=== PATIENT | male | born 1960 | race African-American/Black ===

== ENCOUNTER 2018-06-07 12:08 | Inpatient (IN) | payer OTHER ==
[~2018-06-07] VITALS: Ht 167.6 cm; Wt 77.1 kg
[2018-06-07] MEDS ORDERED: SODIUM CHLORIDE 0.9% 250ML 250 ML IV ONE (12:15)
[2018-06-07] MEDS ORDERED: PANTOPRAZOLE 40 MG 10ML VIAL IV NR (12:30)
[2018-06-07 14:14] LABS: EOSINOPHILS # (AUTO) 0.2 (0.0-0.4); EOSINOPHILS % 5.3 % (0.0-6.0); HEMATOCRIT 25.3 % (38.2-49.6); LYMPHOCYTES % 32.2 % (18.0-39.1); MEAN CORPUSCULAR HEMOGLOBIN 30.2 pg (28-32); MEAN CORPUSCULAR HGB CONC 31.6 g/dL (31-35); MEAN CORPUSCULAR VOLUME 95.5 fL (81-99); MONOCYTES # (AUTO) 0.3 (0.2-0.8); NEUTROPHILS # (AUTO) 1.5 (2.1-6.9); NEUTROPHILS % 50.8 % (38.7-80.0); RED BLOOD COUNT 2.65 x10e6/uL (4.3-5.7); RED CELL DISTRIBUTION WIDTH 14.2 % (11.7-14.4)
[2018-06-07 14:15] LABS: PLATELET COUNT 84 x10e3/uL (140-360)
[2018-06-07 14:33] LABS: INR 1.07; PROTHROMBIN TIME 14.9 seconds (11.9-14.5)
[2018-06-07 14:34] LABS: PARTIAL THROMBOPLASTIN TIME 32.5 seconds (23.8-35.5)
[2018-06-07 14:50] LABS: ALANINE AMINOTRANSFERASE 42 IU/L (0-55); ALBUMIN 2.7 g/dL (3.5-5.0); ALBUMIN/GLOBULIN RATIO 0.5 (0.8-2.0); ALKALINE PHOSPHATASE 85 IU/L (40-150); AMYLASE 143 U/L (25-125); ANION GAP 13.7 mmol/L (8-16); BLOOD UREA NITROGEN 21 mg/dL (7-26); BUN/CREATININE RATIO 24 (6-25); CALCIUM 9.4 mg/dL (8.4-10.2); CARBON DIOXIDE 28 mmol/L (22-29); CHLORIDE 105 mmol/L (98-107); CREATININE, SERUM 0.88 mg/dL (0.72-1.25); EST GLOMERULAR FILTRATION RATE > 60 ML/MIN (60-); GLUCOSE 86 mg/dL (74-118); LIPASE 52 U/L (8-78); MAGNESIUM 1.7 MG/DL (1.3-2.1); POTASSIUM 3.7 mmol/L (3.5-5.1); SODIUM 143 mmol/L (136-145)
[2018-06-07] MEDS ORDERED: OCTREOTIDE ACETATE 600 MCG in SODIUM CHLORIDE 0.9% 250ML 300 ML IV SCH (14:50)
[2018-06-07] MEDS ORDERED: OCTREOTIDE ACETATE 0.05 MG/ML AMP IV STA (14:50)
--- NOTE | 2018-06-07 15:06 | Diagnostic Imaging Report ---
Examination: Single AP view of the chest. COMPARISON: None. INDICATION: Cough, low blood counts DISCUSSION: The lungs are well-inflated. No focal airspace consolidation, pleural effusion, or pneumothorax. Tortuosity of the thoracic aorta with atherosclerotic calcification. Otherwise normal cardiomediastinal contour when accounting for portable, AP technique. No acute osseous abnormality. IMPRESSION: No acute cardiopulmonary abnormality. Signed by: Dr. Jake Souza M.D. on 06/07/2018 3:03 PM
[2018-06-07] MEDS ORDERED: SODIUM CHLORIDE 0.9% 1000ML 1,000 ML IV ONE (15:30)
[2018-06-07] MEDS ORDERED: SODIUM CHLORIDE 0.9% 250ML 250 ML ONE ×2 (15:37→20:52)
[2018-06-07 16:07] LABS: BILIRUBIN,URINE NEGATIVE (NEGATIVE); CLARITY,URINE CLEAR (CLEAR); COLOR,URINE YELLOW (YELLOW); KETONES,URINE NEGATIVE (NEGATIVE); LEUKOCYTE ESTERASE ,URINE NEGATIVE (NEGATIVE); NITRITE,URINE NEGATIVE (NEGATIVE); PROTEIN,URINE DIPSTICK 1+ (NEGATIVE); URINE UROBILINOGEN 0.2 mg/dL (0.2 - 1)
[2018-06-07 16:21] LABS: EPITHELIAL CELLS,URINE RARE /LPF; HYALINE CASTS 0-1 (0-1); MUCUS,URINE FEW (RARE)
--- NOTE | 2018-06-07 16:42 | NUR ---
1ST UNIT OF BLOOD STARTED. V.S.S.
--- NOTE | 2018-06-07 16:55 | NUR ---
V.S.S NO REACTION NOTED
[2018-06-07] MEDS: OCTREOTIDE ACETATE 500 MCG in SODIUM CHLORIDE 0.9% 250ML 249 ML IV SCH (17:00)
[2018-06-07] MEDS: PANTOPRAZOLE 40 MG 10ML VIAL IV SCH (17:00)
--- NOTE | 2018-06-07 17:10 | NUR ---
TOLERATING BLOOD TRANSFLUSION; V.S.S.
--- NOTE | 2018-06-07 17:40 | NUR ---
BLOOD INFUSING WITH NO PROBLEM.
--- NOTE | 2018-06-07 21:40 | NUR ---
2nd unit of blood started. no reaction noted
[2018-06-07 22:45] VITALS: BP 189/91
[2018-06-07 23:00] VITALS: BP_SYST 155; BP_SYST 189; BP_DIAS 116; BP_DIAS 91
[2018-06-08] VITALS (28 sets, daily range): BP systolic 100–178; BP diastolic 48–108
[2018-06-08] MEDS ORDERED: OCTREOTIDE ACETATE 2 ML ONE (02:28)
[2018-06-08] MEDS ORDERED: SODIUM CHLORIDE 0.9% 250ML 250 ML ONE (02:28)
[2018-06-08] MEDS: OCTREOTIDE ACETATE 500 MCG in SODIUM CHLORIDE 0.9% 250ML 249 ML IV SCH ×3 (03:53→21:13)
[2018-06-08] MEDS ORDERED: SODIUM CHLORIDE 0.9% 50ML 50 ML ONE (04:16)
[2018-06-08] MEDS ORDERED: IOPAMIDOL 370 MG/ML 200 ML INFUS..BTL INJ ONE (04:16)
[2018-06-08 05:10] LABS: BASOPHILS % 0.3 % (0.0-1.0); EOSINOPHILS # (AUTO) 0.2 (0.0-0.4); EOSINOPHILS % 6.8 % (0.0-6.0); HEMATOCRIT 29.8 % (38.2-49.6); HEMOGLOBIN 9.7 g/dL (14.0-18.0); LYMPHOCYTES # (AUTO) 0.9 (1.0-3.2); MEAN CORPUSCULAR HGB CONC 32.6 g/dL (31-35); MEAN CORPUSCULAR VOLUME 92.3 fL (81-99); MONOCYTES # (AUTO) 0.3 (0.2-0.8); MONOCYTES % 9.8 % (4.4-11.3); NEUTROPHILS # (AUTO) 1.7 (2.1-6.9); NEUTROPHILS % 54.8 % (38.7-80.0); PLATELET COUNT 78 x10e3/uL (140-360); RED BLOOD COUNT 3.23 x10e6/uL (4.3-5.7); RED CELL DISTRIBUTION WIDTH 14.5 % (11.7-14.4)
[2018-06-08 06:22] LABS: FOLATE 14.6 ng/mL (7.0-15.4)
--- NOTE | 2018-06-08 06:29 | NUR ---
Called pt's [facility] ( Maricruz Samuel..[phone]) twice in an attempt to get consent for EGD. Phone was answered and hung up both times.
--- NOTE | 2018-06-08 06:34 | Diagnostic Imaging Report ---
EXAM: CT Abdomen and Pelvis WITH contrast INDICATION: ^GIB ^[id number] ^[id number] COMPARISON: None. TECHNIQUE: Abdomen and pelvis were scanned utilizing a multidetector helical scanner from the lung base to the pubic symphysis after administration of IV contrast. Coronal and sagittal reformations were obtained. Dose modulation, iterative reconstruction, and/or weight based adjustment of the mA/kV was utilized to reduce the radiation dose to as low as reasonably achievable. Routine protocol was performed. Scan was performed when during portal venous phase. IV CONTRAST: 100 mL of Isovue-370 ORAL CONTRAST: None. COMPLICATIONS: None RADIATION DOSE: Total DLP: 538.38 mGy*cm Estimated effective dose: (DLP x 0.015 x size factor) mSv CTDIvol has been reviewed. It is below the limits set by the Radiation Protocol Committee (RPC). FINDINGS: LINES and TUBES: None. LOWER THORAX: Posterior right lower lobe dependent atelectasis. HEPATOBILIARY: Nodular hepatic contour. There is hypoenhancement of the inferior right hepatic lobe with adjacent small amount of hyperdense perihepatic ascites (series 2, image 28). No focal hepatic lesions. No biliary ductal dilation. GALLBLADDER: Small calcified gallstone versus wall calcification. No wall thickening. SPLEEN: Splenomegaly measuring 16.6 cm. PANCREAS: No focal masses or ductal dilatation. ADRENALS: No adrenal nodules KIDNEYS/URETERS: Kidneys enhance symmetrically. No hydronephrosis. No cystic or solid mass lesions. Left inferior pole calculi measuring up to 1 cm GI TRACT: No abnormal distention, wall thickening, or evidence of bowel obstruction. Appendix is nonvisualized visualized. Large rectal stool burden, concerning for fecal impaction. PELVIC ORGANS/BLADDER: Unremarkable. LYMPH NODES: No lymphadenopathy. VESSELS: Mild to moderate aortoiliac atherosclerotic disease. Recanalized umbilical vein. PERITONEUM / RETROPERITONEUM: No free air or fluid. BONES: Grade 1 retrolisthesis of L5 in relation to L4. Degenerative changes of spine. SOFT TISSUES: Unremarkable. IMPRESSION: 1. Cirrhotic liver with signs of portal hypertension. 2. Inferior right hepatic lobe hypoenhancement with subtle linear hypodense lines and adjacent slightly hyperdense fluid, suspicious for hepatic injury/laceration. Recommend attention on short-term follow-up examination. 3. Left nonobstructive nephrolithiasis. 4. Tiny gallstone versus gallbladder wall calcification. 5. Large rectal stool burden, could represent fecal impaction. Signed by: Dr. Jonathan Rodrigues MD on 06/08/2018 6:31 AM
[2018-06-08 07:07] LABS: FERRITIN 185.37 ng/mL (21.81-274.66)
--- NOTE | 2018-06-08 07:16 | NUR ---
paged Dr Rena Haq regarding CT results
[2018-06-08] MEDS ORDERED: ATORVASTATIN CA20 MG PO (08:22)
[2018-06-08] MEDS ORDERED: FERROUS SULFAT324 MG PO (08:22)
[2018-06-08] MEDS ORDERED: FUROSEMIDE40 MG PO (08:22)
[2018-06-08] MEDS ORDERED: LACTULOSE20 GM/30 M PO (08:22)
[2018-06-08] MEDS ORDERED: CYCLOBENZAPRINE10 MG PO (08:22)
[2018-06-08] MEDS ORDERED: GABAPENTIN300 MG PO (08:22)
[2018-06-08] MEDS ORDERED: ASPIR 8181 MG PO (08:22)
[2018-06-08] MEDS ORDERED: PANTOPRAZOLE SO40 MG PO (08:23)
[2018-06-08] MEDS ORDERED: SERTRALINE20 MG/1 ML PO (08:23)
[2018-06-08] MEDS ORDERED: NAMENDA10 MG PO (08:23)
[2018-06-08] MEDS ORDERED: ULTRAM50 MG PO (08:23)
[2018-06-08] MEDS ORDERED: ZOFRAN4 MG PO (08:23)
[2018-06-08] MEDS ORDERED: TAMSULOSIN HCL0.4 MG PO (08:23)
--- NOTE | 2018-06-08 09:00 | NUR ---
SPOKE WITH PATIENT'S NIECE/ POA, SHE CONSENTED FOR EGD. PATIENT COMBATIVE WHEN ATTEMPT TO CLEAN HIM OR TAKE A TEMPERATURE. PATIENT REFUSES ANY ORAL CARE.
[2018-06-08] MEDS ORDERED: BISACODYL 10 MG SUPP PR ONE (09:30)
[2018-06-08] MEDS ORDERED: TRAMADOL HCL 50 MG TAB PO PRN (09:30)
[2018-06-08] MEDS ORDERED: LACTULOSE SYRUP 20 GM/30 ML UDC PO SCH (10:00)
--- NOTE | 2018-06-08 10:02 | Consultation ---
DATE OF CONSULTATION: June 08, 2018 CHIEF COMPLAINT: GI bleeding. HISTORY OF PRESENT ILLNESS: The patient is a 57-year-old male with a history of hematemesis with known history of cirrhosis of the liver. He denies abdominal pain, fever, chills, or diarrhea. The patient was found on CT scan to have a finding suggestive of hepatic laceration. PAST MEDICAL HISTORY: Positive for alcohol use with cirrhosis of the liver and hypertension. ALLERGIES: HE HAS NO DRUG ALLERGIES. SURGICAL HISTORY: Unremarkable. SOCIAL HABITS: Patient is a heavy drinker. Denies smoking. REVIEW OF SYSTEMS: No chest pain or shortness of breath. PHYSICAL EXAMINATION VITAL SIGNS: Stable. He is afebrile. GENERAL: He is awake and alert. No apparent distress. HEENT: Sclerae is nonicteric. NECK: Supple. LUNGS: Clear. HEART: Regular rate and rhythm. ABDOMEN: Soft with no guarding or tenderness in the right upper quadrant or other quadrants. EXTREMITIES: Without cyanosis or edema. White cell count is 3, hemoglobin of 9.7 and platelet count 78,000. Creatinine is 0.8 with bilirubin 0.3 and alkaline phosphatase 85. Lipase 52. INR of 1 with PT of 415. CT of the abdomen as mentioned is showing cirrhosis of the liver with portal hypertension, inferior right liver lobe subtle hypodense line suggestive of injury or laceration. ASSESSMENT: The patient with a history of hematemesis and gastrointestinal bleeding, likely from upper gastrointestinal source related to cirrhotic liver. Computerized tomography finding suggestive of hepatic injury and bleeding with no clinical supportive signs/symptoms. PLAN: Monitor abdominal exam and H and H. Will follow the patient with you closely. Job#: [id number]
[2018-06-08] MEDS: PANTOPRAZOLE 40 MG 10ML VIAL IV SCH ×2 (10:08→16:16)
[2018-06-08] MEDS: TAMSULOSIN HCL 0.4 MG CAP PO SCH (10:13)
[2018-06-08] MEDS: MEMANTINE 10 MG TAB PO SCH ×2 (10:13→18:00)
[2018-06-08] MEDS: LACTULOSE SYRUP 20 GM/30 ML UDC PO SCH ×2 (10:13→17:00)
[2018-06-08 12:21] LABS: BASOPHILS % 0.2 % (0.0-1.0); EOSINOPHILS # (AUTO) 0.3 (0.0-0.4); EOSINOPHILS % 7.1 % (0.0-6.0); HEMATOCRIT 32.1 % (38.2-49.6); HEMOGLOBIN 10.6 g/dL (14.0-18.0); LYMPHOCYTES # (AUTO) 1.1 (1.0-3.2); LYMPHOCYTES % 26.7 % (18.0-39.1); MEAN CORPUSCULAR HEMOGLOBIN 29.9 pg (28-32); MEAN CORPUSCULAR VOLUME 90.4 fL (81-99); MONOCYTES # (AUTO) 0.3 (0.2-0.8); MONOCYTES % 7.3 % (4.4-11.3); NEUTROPHILS # (AUTO) 2.5 (2.1-6.9); NEUTROPHILS % 58.2 % (38.7-80.0); PLATELET COUNT 82 x10e3/uL (140-360); RED BLOOD COUNT 3.55 x10e6/uL (4.3-5.7); RED CELL DISTRIBUTION WIDTH 14.5 % (11.7-14.4)
--- NOTE | 2018-06-08 17:39 | NUR ---
1ST BM WAS FORMED AND BROWN W COFFEE GROUND. 2ND BM WAS LOOSE AND BROWN W COFFEE GROUND
[2018-06-08 17:42] LABS: BASOPHILS % 0.2 % (0.0-1.0); EOSINOPHILS # (AUTO) 0.2 (0.0-0.4); EOSINOPHILS % 4.1 % (0.0-6.0); HEMATOCRIT 34.1 % (38.2-49.6); HEMOGLOBIN 10.7 g/dL (14.0-18.0); LYMPHOCYTES # (AUTO) 0.9 (1.0-3.2); LYMPHOCYTES % 19.3 % (18.0-39.1); MEAN CORPUSCULAR HEMOGLOBIN 29.6 pg (28-32); MEAN CORPUSCULAR HGB CONC 31.4 g/dL (31-35); MEAN CORPUSCULAR VOLUME 94.5 fL (81-99); MONOCYTES # (AUTO) 0.3 (0.2-0.8); MONOCYTES % 6.1 % (4.4-11.3); NEUTROPHILS # (AUTO) 3.1 (2.1-6.9); NEUTROPHILS % 69.8 % (38.7-80.0); RED BLOOD COUNT 3.61 x10e6/uL (4.3-5.7); RED CELL DISTRIBUTION WIDTH 14.3 % (11.7-14.4)
--- NOTE | 2018-06-08 17:42 | NUR ---
PATIENT CONSTANTLY REMOVES O2 SENSOR. SPOT CHECKS REVEAL 98-100% ON ROOM AIR
[2018-06-08 17:44] LABS: PLATELET COUNT 79 x10e3/uL (140-360)
--- NOTE | 2018-06-08 18:04 | NUR ---
SEBASTIAN EPSTEIN REGARDING PLANS FOR EGD AND NPO STATUS Addendum: 06/08/18 at 1906 by Teodora Castillo RN PLANS FOR EGD TOMORROW. MAY HAVE CLEAR LIQUIDS TONIGHT AND THEN NPO PAST MIDNIGHT.
--- NOTE | 2018-06-08 18:54 | NUR ---
MODERATE LOOSE BROWN COFFEE GROUND BM
[2018-06-09] VITALS (18 sets, daily range): BP systolic 120–158; BP diastolic 66–93
--- NOTE | 2018-06-09 00:32 | History and Physical ---
CHIEF COMPLAINT: Altered mental status, liver cirrhosis, GI bleeding, thrombocytopenia, low blood count, and hemoglobin and hematocrit of 8 and 25.3. HISTORY: The patient is a 57-year-old male, who is a resident of [facility], who was brought into the hospital due to upper GI bleed with melena. The patient has hemoglobin of 8 and hematocrit of 25.3. He is also having increase in diminished mentation. His ammonia level was 59. The patient has baseline liver cirrhosis. He is currently in the ICU. His blood pressure was low and possible with acute bleed. The patient is admitted to the ICU for further treatment. Currently, the patient is unable to give any coherent history. He is awake, however, but not following commands. PAST MEDICAL HISTORY: CVA, essential hypertension, dyslipidemia, reflux, liver cirrhosis, nonspecific hemiplegia, vascular dementia with behavioral disturbances, anxiety disorder, restlessness and agitation, progressive medical decline, ambulatory dysfunction, and dysphagia. PAST SURGICAL HISTORY: Not available. SOCIAL HISTORY: The patient is a resident of [facility]. ALLERGIES: NO KNOWN ALLERGIES. MEDICATIONS: long-term medication list will be reviewed. REVIEW OF SYSTEMS: Unable to obtain. PHYSICAL EXAMINATION: VITAL SIGNS: Temperature is 98, blood pressure is 135/67, pulse rate is 58, and respirations are 22. GENERAL: The patient is not in any acute distress in ICU. HEENT: Normocephalic and atraumatic. Anicteric. NECK: Supple grossly. PULMONARY: Diminished breath sounds bilaterally. CARDIOVASCULAR: Bradycardia. ABDOMEN: Distended. No guarding. No rebound tenderness. EXTREMITIES: No gross cyanosis. Positive for edema. NEUROLOGIC: Difficult to assess. The patient is not following much commands. He is awake. He is confused however. DIAGNOSTIC DATA: CT scan of the abdomen and pelvis shows cirrhotic liver with sign of portal hypertension. There is inferior right hepatic lobe hypoenhancement suspicious for hepatic injury. Nonobstructive left nephrolithiasis. Tiny gallstones. Large rectal stool burden. LABORATORY DATA: Sodium is 143, potassium is 3.7, chloride is 105, bicarb is 28, BUN is 21, creatinine is 0.8, and glucose is 86. Liver enzymes; AST is 48, ALT is 42, and alkaline phosphatase is 85. Albumin is 2.7. WBC is 3.0, hemoglobin is 8, hematocrit is 25.3, and platelets are 84,000. Occult blood is positive. Urinalysis; 1+ protein. Negative leukocyte esterase. IMPRESSION: 1. Acute blood loss anemia. The [facility], shows hemoglobin of 6.9 and hematocrit 20.1. Here, the patient is status post 2 units of blood transfusion. The patient is stable. 2. Liver cirrhosis, baseline. 3. Multiple chronic baseline problems, including vascular dementia and previous cerebrovascular accident, hemiparesis, jail ADL care per [facility] note, ambulatory dysfunction. PLAN: The patient will need endoscopy. We will monitor the patient's labs. We will repeat his blood work in the morning. Blood transfusion is already done. Consultation to Gastroenterology and General Surgery, Dr. Zeb Haq and Dr. Jake Estrada. We will repeat the patient's lab work and monitor the patient closely in the ICU. MD IDALIA Wilkins/LEWIS /[id number]
[2018-06-09] MEDS: MEMANTINE 10 MG TAB PO SCH ×2 (09:00→16:03)
[2018-06-09] MEDS: LACTULOSE SYRUP 20 GM/30 ML UDC PO SCH ×2 (09:00→16:03)
[2018-06-09] MEDS: PANTOPRAZOLE 40 MG 10ML VIAL IV SCH ×2 (09:00→14:50)
[2018-06-09] MEDS: TAMSULOSIN HCL 0.4 MG CAP PO SCH (09:00)
[2018-06-09] MEDS: OCTREOTIDE ACETATE 500 MCG in SODIUM CHLORIDE 0.9% 250ML 249 ML IV SCH ×2 (10:25→21:00)
[2018-06-09] MEDS ORDERED: LIDOCAINE HCL 2% LOCAL INJ 5 ML SDV VIAL INJ ONE (16:55)
[2018-06-09] MEDS ORDERED: PROPOFOL IV EMULSION 10 MG/ML 50 ML VIAL ONE (16:55)
[2018-06-09] MEDS ORDERED: KETAMINE HCL INJ 50 MG/ML 10 ML VIAL ONE (17:36)
--- NOTE | 2018-06-09 18:51 | NUR ---
PT BEING TAKEN FOR EGD PROCEDURE AT THIS TIME,
--- NOTE | 2018-06-09 20:55 | NUR ---
PATIENT RECEIVED FROM RECOVERY PER BED AT 2020. ALERT, ORIENTED TO SELF AND PLACE, NO RESPIRATORY DISTRESS OBSERVED AND HE DENIES PAIN. PATIENT INCONTINENT OF URINE, HE'S KEPT CLEAN AND DRY, REPOSITION ON HIS LEFT SIDE. BLISTERS NOTED TO THE RIGHT THIGH, HEAD OF BED ELEVATED, CALL LIGHT WITHIN EASY REACH.
--- NOTE | 2018-06-09 23:07 | NUR ---
PATIENT KEPT CLEAN AND DRY, REPOSITION TO THE RIGHT SIDE. JELLO AND APPLE JUICE GIVEN TO THE PATIENT. BED ALARM ON, CALL LIGHT WITHIN EASY REACH.
[2018-06-10 00:25] VITALS: BP 188/84
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
--- NOTE | 2018-06-10 01:58 | Operative Report ---
DATE OF PROCEDURE: 06/09/2018 PROCEDURE: EGD with fulguration of watermelon stomach with APC probe. REFERRING PHYSICIAN: Alo Beach MD. INDICATION FOR EGD: Anemia, melena, and guaiac positive stools. MEDICATIONS: The patient was done under MAC. Please see anesthesiologist's note. DESCRIPTION OF PROCEDURE: With the patient in left lateral decubitus position, a flexible fiberoptic Olympus gastroscope was introduced into the esophagus under direct visualization without any difficulty. Grade 1 to 2 esophageal varices were noted without active bleeding or stigmata of recent hemorrhage. The scope was then advanced with ease into the stomach. Mucosa overlying the body revealed changes compatible with portal hypertensive gastropathy. There was an obvious watermelon stomach noted in the antrum. The pylorus was somewhat stenotic, but was traversed with gentle persistent pressure and opened up nicely later and the scope was advanced through the second portion of the duodenum. Mucosa overlying the proximal second portion and the duodenal bulb was not optimally visualized as the patient was restless during the procedure. The scope was then withdrawn back into the stomach. The scope was then retroflexed. The mucosa overlying the fundus and cardia grossly appeared to be within normal limits. The scope was then straightened out and the watermelon stomach was fulgurated with the APC probe. Excellent hemostasis was obtained. The scope was subsequently withdrawn. The patient tolerated the procedure well. IMPRESSION: 1. Esophageal varices grade 1 to 2 without active bleeding or stigmata of recent hemorrhage. 2. Portal hypertensive gastropathy. 3. Watermelon stomach fulgurated with APC probe. PLAN: Follow H and H. Initiate full liquid diet. Zeb Haq MD [facility] [place] /[id number] cc: Alo Beach MD
--- NOTE | 2018-06-10 04:41 | NUR ---
SEVERAL ATTEMPTS MADE TO CHECK THE PATIENT TO SEE IF HE NEEDS TO BE DRY, HE BECAME AGITATED AND REFUSED TO BE TOUCH AND ALSO REPOSITION. THIS PATIENT HAS HISTORY OF DEMENTIA, WILL WAIT UNTIL HE'S CALM TO ASSESS HIS VITAL SIGNS AND CHANGE HIM BECAUSE HE'S USUALLY INCONTINENT.
[2018-06-10 07:00] VITALS: BP 161/74
[2018-06-10] MEDS: OCTREOTIDE ACETATE 500 MCG in SODIUM CHLORIDE 0.9% 250ML 249 ML IV SCH ×3 (07:08→23:00)
[2018-06-10] MEDS ORDERED: CYCLOBENZAPRINE HCL 10 MG TAB PO PRN (09:00)
[2018-06-10] MEDS: MEMANTINE 10 MG TAB PO SCH ×2 (09:10→16:19)
[2018-06-10] MEDS: LACTULOSE SYRUP 20 GM/30 ML UDC PO SCH ×2 (09:10→16:19)
[2018-06-10] MEDS: TAMSULOSIN HCL 0.4 MG CAP PO SCH (09:10)
[2018-06-10] MEDS: PANTOPRAZOLE 40 MG 10ML VIAL IV SCH ×2 (09:10→16:19)
[2018-06-10] MEDS: GABAPENTIN 300 MG CAP PO SCH ×3 (09:34→21:23)
[2018-06-10] MEDS: FERROUS SULFATE 325 MG TAB PO SCH ×2 (09:34→16:19)
[2018-06-10] MEDS: FUROSEMIDE 40 MG TAB PO SCH (09:34)
[2018-06-10 11:00] VITALS: BP 169/80
[2018-06-10 15:00] VITALS: BP 146/79
--- NOTE | 2018-06-10 15:14 | NUR ---
Attempted to visit pt today but pt was sleeping. RD will revisit tomorrow.
[2018-06-10 20:00] VITALS: BP 171/92
--- NOTE | 2018-06-10 21:24 | NUR ---
PATIENT PULL OUT HIS IV, NO BLEEDING NOTED FROM THE SITE. WILL ATTEMPT TO RESTART HIS IV.
--- NOTE | 2018-06-10 22:18 | NUR ---
PATIENT INCONTINENT OF URINE, HE'S KEPT CLEAN AND DRY, REPOSITION FOR COMFORT. ATTEMPTED TO RESTART THE PATIENT'S IV SINCE HE GOT AN ORDER FOR SANDOSTATIN DRIP, HE'S VERY COMBATIVE, USING OFFENSIVE WORDS AND DOES NOT WANT THE IV STARTED. WILL NOTIFY THE PRESCRIBING PHYSICIAN. BED ALARM ON, CALL LIGHT WITHIN EASY REACH.
--- NOTE | 2018-06-11 00:39 | NUR ---
DR Marianela EPSTEIN SAW THE PATIENT, HE WAS MADE AWARE THAT THE PATIENT REFUSED TO RESTART HIS IV AND HE WAS USING ABUSIVE WORDS TOWARDS THE STAFF.
[2018-06-11 04:00] VITALS: BP_SYST 126; BP_SYST 144; BP_DIAS 55; BP_DIAS 87
--- NOTE | 2018-06-11 04:52 | NUR ---
PATIENT INCONTINENT OF URINE, HE'S KEPT CLEAN AND DRY. HE DENIES PAIN, BED ALARM ON AND CALL LIGHT WITHIN EASY REACH.
[2018-06-11 05:01] LABS: BASOPHILS % 0.3 % (0.0-1.0); EOSINOPHILS # (AUTO) 0.2 (0.0-0.4); EOSINOPHILS % 4.9 % (0.0-6.0); HEMATOCRIT 28.7 % (38.2-49.6); HEMOGLOBIN 9.5 g/dL (14.0-18.0); LYMPHOCYTES % 32.6 % (18.0-39.1); MEAN CORPUSCULAR HEMOGLOBIN 30.4 pg (28-32); MEAN CORPUSCULAR HGB CONC 33.1 g/dL (31-35); MEAN CORPUSCULAR VOLUME 91.7 fL (81-99); MONOCYTES # (AUTO) 0.3 (0.2-0.8); MONOCYTES % 8.6 % (4.4-11.3); NEUTROPHILS # (AUTO) 1.6 (2.1-6.9); NEUTROPHILS % 53.3 % (38.7-80.0); PLATELET COUNT 61 x10e3/uL (140-360); RED BLOOD COUNT 3.13 x10e6/uL (4.3-5.7); RED CELL DISTRIBUTION WIDTH 13.9 % (11.7-14.4)
[2018-06-11 05:22] LABS: ANION GAP 8.9 mmol/L (8-16); BLOOD UREA NITROGEN 22 mg/dL (7-26); BUN/CREATININE RATIO 28 (6-25); CALCIUM 8.3 mg/dL (8.4-10.2); CARBON DIOXIDE 26 mmol/L (22-29); CHLORIDE 107 mmol/L (98-107); EST GLOMERULAR FILTRATION RATE > 60 ML/MIN (60-); GLUCOSE 83 mg/dL (74-118); POTASSIUM 3.9 mmol/L (3.5-5.1); SODIUM 138 mmol/L (136-145)
[2018-06-11 05:51] LABS: MAGNESIUM 1.6 MG/DL (1.3-2.1); PHOSPHORUS 2.6 MG/DL (2.3-4.7)
[2018-06-11 07:30] VITALS: BP 130/80
[2018-06-11 08:00] VITALS: BP 144/87
[2018-06-11] MEDS: PANTOPRAZOLE 40 MG 10ML VIAL IV SCH (09:00)
[2018-06-11] MEDS: FUROSEMIDE 40 MG TAB PO SCH (09:23)
[2018-06-11] MEDS: FERROUS SULFATE 325 MG TAB PO SCH ×2 (09:23→16:30)
[2018-06-11] MEDS: LACTULOSE SYRUP 20 GM/30 ML UDC PO SCH ×2 (09:23→16:30)
[2018-06-11] MEDS: TAMSULOSIN HCL 0.4 MG CAP PO SCH (09:23)
[2018-06-11] MEDS: MEMANTINE 10 MG TAB PO SCH ×2 (09:23→16:30)
[2018-06-11] MEDS: GABAPENTIN 300 MG CAP PO SCH ×2 (09:24→15:24)
--- NOTE | 2018-06-11 09:31 | NUR ---
informed dr valentin, patient has no IV access, orders to change IV medications to PO received
[2018-06-11 12:00] VITALS: BP 156/84
--- NOTE | 2018-06-11 14:03 | NUR ---
patient incontinent of urine, diaper changed and repositioned in bed, bed alarm on
--- NOTE | 2018-06-11 15:23 | NUR ---
informed Maricruz Samuel @ [phone], patient is being discharged and will transfer back to [facility] today, verbalized understanding
[2018-06-11 16:45] VITALS: BP 133/70
[2018-06-11] MEDS ORDERED: PANTOPRAZOLE SOD 40 MG TABEC PO SCH (17:00)
--- NOTE | 2018-06-11 17:38 | NUR ---
patient discharged to [facility] via stretcher transported by EMS, all discharge instructions given
--- NOTE | 2018-06-12 15:39 | Discharge Summary ---
SERVICE SPRINKLER HELPER: Zeb Haq MD FINAL DIAGNOSES: 1. Acute upper gastrointestinal bleed anemia. 2. Status post multiple packed red blood cell transfusion. 3. Status post esophagogastroduodenoscopy with fulguration of watermelon stomach with APC probe. The patient has esophageal varices grade 1-2 without active bleed or stigmata of recent hemorrhage. Portal hypertension, gastropathy, watermelon stomach, status post fulgurated with APC probe with treatment. BASELINE: The patient has previous CVA, vascular dementia and left hemiparesis, bedbound, on full ADL care. SUMMARY: The patient is a 57-year-old male, [facility] resident, left hemiparesis, bedbound, and required mostly full ADL care. The patient also has vascular dementia, came in with very low hemoglobin and hematocrit. On admission, the patient's hemoglobin was 8.0 and hematocrit was 25.3. The patient is status post 2 units of blood transfusion. He underwent EGD and treatment as mentioned above. The patient is stable. He is doing much better. No gross bleed. Vital signs are stable. The patient will be [facility] to the [facility]. Recommendation to stop the Lipitor due to the patient's liver cirrhosis and also the aspirin 81 mg daily due to the watermelon stomach. The patient will continue his other home medications. The patient is stable. Recommended for obtaining CBC every 3 days x3 sets. The patient is stable, discharged back to the [facility] today. MD IDALIA Wilkins/MODL /[id number]
== END 2018-06-11 17:15 | disposition other institution (70) | DRG 378 ==
LOC: ER 12:08 → ERHOLD 16:37 → ICU 22:50 → IMCU 06-09 14:47
PROVIDERS: ADMIT Internal Medicine; ATTEND Internal Medicine
PROC: 0D568ZZ Destruction of Stomach, Via Natural or Artificial Opening Endoscopic (ICD-10-PCS; principal; 2018-06-07)
PROC: 30233N1 Transfusion of Nonautologous Red Blood Cells into Peripheral Vein, Percutaneous Approach (ICD-10-PCS; 2018-06-07)
DX: K31.811 Angiodysplasia of stomach and duodenum with bleeding (principal); K76.6 Portal hypertension; I69.351 Hemiplegia and hemiparesis following cerebral infarction affecting right dominant side; D62 Acute posthemorrhagic anemia; K31.89 Other diseases of stomach and duodenum; K74.60 Unspecified cirrhosis of liver; I10 Essential (primary) hypertension; E11.9 Type 2 diabetes mellitus without complications; I85.10 Secondary esophageal varices without bleeding; F01.50 Vascular dementia, unspecified severity, without behavioral disturbance, psychotic disturbance, mood disturbance, and anxiety
CPT/HCPCS: 36415; 43270; 71045; 74177; 80048; 80053; 81001; 82105; 82140; 82150; 82270; 82607; 82728; 82746; 82948; 83540; 83690; 83735; 84100; 84466; 85025; 85045; 85610; 85730; 86850; 86900; 86920; 87522; 93005; 99284; J2001; J2353; J7030; J7050; P9016; Q9967

== ENCOUNTER 2018-12-27 13:17 | Inpatient (IN) | payer OTHER ==
[~2018-12-27] VITALS: Ht 167.6 cm; Wt 76.3 kg
[~2018-12-27 13:17] MED LIST: ASPIR 8181 MG PO; ATORVASTATIN CA20 MG PO; CYCLOBENZAPRINE10 MG PO; FERROUS SULFAT324 MG PO; FUROSEMIDE40 MG PO; GABAPENTIN300 MG PO; LACTULOSE20 GM/30 M PO; NAMENDA10 MG PO; PANTOPRAZOLE SO40 MG PO; SERTRALINE20 MG/1 ML PO; TAMSULOSIN HCL0.4 MG PO; ULTRAM50 MG PO; ZOFRAN4 MG PO
--- NOTE | 2018-12-27 13:46 | NUR ---
DR. PIKE AT BEDSIDE FOR PT EVAL, PERFORMING RAMANDEEP FOR OCCULT STOOL.
[2018-12-27] MEDS ORDERED: PANTOPRAZOLE 40 MG 10ML VIAL IV ONE (13:49)
[2018-12-27] MEDS ORDERED: SODIUM CHLORIDE 0.9% 1000ML 1,000 ML IV STA (13:49)
[2018-12-27] MEDS ORDERED: SODIUM CHLORIDE 0.9% 1000ML 500 ML IV STA (13:49)
[2018-12-27] MEDS ORDERED: ONDANSETRON HCL INJ 2MG/ML 2ML 2 MG/ML VIAL IV PRN (14:00)
[2018-12-27 14:07] LABS: BASOPHILS % 0.3 % (0.0-1.0); EOSINOPHILS # (AUTO) 0.1 (0.0-0.4); EOSINOPHILS % 3.9 % (0.0-6.0); HEMATOCRIT 24.4 % (38.2-49.6); HEMOGLOBIN 7.4 g/dL (14.0-18.0); LYMPHOCYTES # (AUTO) 0.8 (1.0-3.2); LYMPHOCYTES % 22.6 % (18.0-39.1); MEAN CORPUSCULAR HEMOGLOBIN 29.6 pg (28-32); MEAN CORPUSCULAR HGB CONC 30.3 g/dL (31-35); MEAN CORPUSCULAR VOLUME 97.6 fL (81-99); MONOCYTES # (AUTO) 0.2 (0.2-0.8); MONOCYTES % 6.9 % (4.4-11.3); NEUTROPHILS # (AUTO) 2.2 (2.1-6.9); NEUTROPHILS % 65.7 % (38.7-80.0); PLATELET COUNT 73 x10e3/uL (140-360); RED CELL DISTRIBUTION WIDTH 14.8 % (11.7-14.4)
[2018-12-27 14:18] LABS: INR 1.13
[2018-12-27 14:19] LABS: PARTIAL THROMBOPLASTIN TIME 30.9 seconds (23.8-35.5)
[2018-12-27 14:29] LABS: ALANINE AMINOTRANSFERASE 42 IU/L (0-55); ALBUMIN 2.6 g/dL (3.5-5.0); ALBUMIN/GLOBULIN RATIO 0.5 (0.8-2.0); ALKALINE PHOSPHATASE 80 IU/L (40-150); BLOOD UREA NITROGEN 23 mg/dL (7-26); BUN/CREATININE RATIO 24 (6-25); CALCIUM 9.4 mg/dL (8.4-10.2); CARBON DIOXIDE 26 mmol/L (22-29); CHLORIDE 109 mmol/L (98-107); CREATINE KINASE 145 IU/L (30-200); CREATININE, SERUM 0.97 mg/dL (0.72-1.25); EST GLOMERULAR FILTRATION RATE > 60 ML/MIN (60-); GLUCOSE 100 mg/dL (74-118); SODIUM 145 mmol/L (136-145)
[2018-12-27 14:45] LABS: LIPASE 47 U/L (8-78)
[2018-12-27 15:05] LABS: THYROID STIMULATING HORMONE 0.933 uIU/mL (0.350-4.940)
--- NOTE | 2018-12-27 15:40 | Diagnostic Imaging Report ---
EXAMINATION: CHEST SINGLE (PORTABLE) INDICATION: Anemia COMPARISON: Chest graft with 06/07/2018 FINDINGS: LINES/TUBES:EKG leads overlie the chest. LUNGS:The lungs are well-inflated. No focal consolidation or pulmonary edema. PLEURA:No pleural effusion or pneumothorax. MEDIASTINUM:The cardiomediastinal silhouette appears normal in size and shape. Atherosclerotic calcifications of the thoracic aorta. BONES/SOFT TISSUES:No acute osseous injury. ABDOMEN:No free air under the diaphragm. IMPRESSION: No focal pneumonia or pulmonary edema. Signed by: Mere Eng MD on 12/27/2018 3:36 PM
--- NOTE | 2018-12-27 16:26 | NUR ---
AT BEDSIDE FOR STRAIGHT CATH, PT BECOMING AGGRESSIVE, STATING "BITCH ASS WOLF, FUCK YOU" TO STAFF, INFORMED ON INTENT TO OBTAIN CATH UA PER PLAN OF CARE AND MD ORDERS; PROCEDURE COMPLETE USING ASEPTIC TECHNIQUE, CATH UA SENT TO LAB, WILL CONTINUE TO MONITOR.
[2018-12-27 16:53] LABS: BILIRUBIN,URINE NEGATIVE (NEGATIVE); CLARITY,URINE CLEAR (CLEAR); COLOR,URINE YELLOW (YELLOW); KETONES,URINE NEGATIVE (NEGATIVE); LEUKOCYTE ESTERASE ,URINE NEGATIVE (NEGATIVE); NITRITE,URINE NEGATIVE (NEGATIVE); PROTEIN,URINE DIPSTICK 1+ (NEGATIVE); URINE UROBILINOGEN 1 mg/dL (0.2 - 1)
[2018-12-27 17:06] LABS: BACTERIA,URINE FEW /HPF; HYALINE CASTS 0-1 (0-1)
[2018-12-27] MEDS ORDERED: ACETAMINOPHEN 325 MG TAB PO STA (17:59)
[2018-12-27] MEDS ORDERED: SODIUM CHLORIDE 0.9% 250ML 250 ML IV ONE (18:00)
[2018-12-27] MEDS ORDERED: FUROSEMIDE INJ 10 MG/ML 2 ML VIAL IV PRN (18:00)
[2018-12-27] MEDS ORDERED: DIPHENHYDRAMINE HCL INJ 50 MG/ML VIAL IV ONE (18:30)
[2018-12-27 19:37] LABS: % IRON SATURATION 23 % (15-50); IRON 60 ug/dL (65-175); TOTAL IRON BINDING CAPACITY 258 ug/dL (261-478); TRANSFERRIN 184 mg/dL (174-364)
[2018-12-27] MEDS: SODIUM CHLORIDE 0.9% 1000ML 1,000 ML IV SCH (21:53)
[2018-12-28] VITALS (9 sets, daily range): BP systolic 115–159; BP diastolic 60–90
--- NOTE | 2018-12-28 00:30 | NUR ---
Pt admitted to room 296 awake, alert, and oriented to person. Dx: GIB, anemia. Orders to give 2 units PRBCs, hgb 7.4. On monitoring specialist with NSR., #6. Lung sounds CTA. Oxygen Saturation on room air 100%. Abdomen soft, non-tender, distended, + 4 bowel sounds. Wears diaper. 20g IV right AC, flushed 10ml NS. Hx CVA, PROM x4 extremities. Lives at [facility]. Oriented to call hayes. Bed low and locked. Call hayes within reach. Bed alarm on. Will continue to monitor.
[2018-12-28] MEDS ORDERED: DIPHENHYDRAMINE HCL INJ 50 MG/ML VIAL ONE (01:15)
[2018-12-28] MEDS ORDERED: ACETAMINOPHEN 325 MG TAB ONE (01:16)
[2018-12-28] MEDS ORDERED: SODIUM CHLORIDE 0.9% 250ML 250 ML ONE ×2 (01:16→04:25)
--- NOTE | 2018-12-28 01:41 | History and Physical ---
A 58-year-old male, who comes in with GI bleed with history of anemia. HISTORY OF PRESENTING ILLNESS: The patient is slow to answer, slow response. The patient, however, presented to the emergency room from the [facility] to the emergency room for low hemoglobin of 6.5 for the last 2 days. The patient is aphasic from the history of stroke, information as from the chart. PAST MEDICAL HISTORY: History of CVA, history of hypertension, history of diabetes, history of liver disease, history of hyperlipidemia. The patient's history includes hyperlipidemia and gastroesophageal reflux and also hepatic failure with unspecified cirrhosis of the liver. The patient also has history of falling, history of anxiety, history of pain, history of age-related physical disability, and also history of dysphagia, has cognitive communication deficits too. MEDICATIONS: Include: 1. Cyclobenzaprine 10 mg. 2. Ferrous sulfate 325 mg. 3. Furosemide 60 mg twice a day. 4. Gabapentin 300 mg 3 times a day. 5. Lactulose 45 mg. 6. Memantine 10 mg. 7. Pantoprazole 40 mg daily. 8. Sertraline 20 mg daily. 9. Tamsulosin 0.4 mg q.24 hours. 10. Tramadol 50 mg q.6 hours p.r.n. PAST SURGICAL HISTORY: Unable to get at this time, but from chart, the patient does not have any surgical history. SOCIAL HISTORY: Lives in a half-way setting and also hemoglobin trends from 7.6 to 7.3 on 12/12. On 12/26, the patient is 6.5 and yesterday 12/19, the patient was 6.6. ALLERGIES: NO DRUG ALLERGIES LISTED. SOCIAL HISTORY: As mentioned above. REVIEW OF SYSTEMS: Unable to get complete history, secondary to the patient being aphasic and also not responsive to questions. PHYSICAL EXAMINATION: VITAL SIGNS: Temperature is 98.2, pulse 91, respirations is 16, blood pressure is 150/83, pulse oximetry of 100%. HEENT: Normocephalic, atraumatic. Pupils are reactive. The patient is slow response again. CVS: S1 and S2 normal. Regular rate and rhythm. ABDOMEN: Tender in the epigastrium. EXTREMITIES: No clubbing. Positive for trace edema. Positive for tenderness in the lower extremity. RECTUM: Positive for heme-positive stools as per ER. SKIN: Warm. NEUROLOGIC: Alert and oriented x1. The patient is slow response. Motor deficit and sensory deficit not noted, however, not completely examined. LABORATORY VALUES: Initial white count is 3.32, hemoglobin of 7.4, hematocrit of 24.4, and platelet count of 73. MCV is 97.6, MCHC of 29.6. Chemistry shows sodium of 140, potassium of 4.0. BUN of 23, creatinine 0.97, total bilirubin 0.93. ALT and AST are 42 and 46, CK-MB 7.7, TSH 0.93. Coags were normal. IMAGING STUDIES: Chest x-ray was done, shows no focal pneumonia or pulmonary edema. ASSESSMENT: 1. A 58-year-old male with a history of cirrhosis of the liver. 2. History of portal hypertension. 3. History of diabetes mellitus. 4. History of gastrointestinal bleed and anemia of chronic disease, all possibly secondary to upper gastrointestinal bleed. 5. History of dementia. 6. History of encephalopathy. 7. History of hypertension. 8. History of hyperlipidemia. PLAN: We will consult with Dr. Carrington. That has been done, the patient will be kept in IMCU with telemonitoring. Check CBCs. Iron panel will be ordered. The patient also will have his home medications replaced. Further recommendation per clinical course. Also, urine cultures pending. We will continue to monitor the patient along with Dr. Zeb Haq and if hemoglobin is stabilized, then we will not transfuse, but if it keeps dropping, we will go ahead and transfuse 2 units of PRBC. We will type and cross 2 units and keep it aside. MD LUIS Peters/MODL /[id number]
--- NOTE | 2018-12-28 08:33 | Progress Note ---
DATE: SUBJECTIVE: This is a 58-year-old male, comes in with acute GI bleed yesterday. The patient is receiving 2 units of PRBCs, 1st unit is ongoing. A consult with Dr. Zeb Haq has been done. The patient is currently asymptomatic and is currently sleeping. The patient has a history of CVA in the face, he cannot respond to verbal stimulus. The patient is very lethargic. MEDICATIONS: Include ferrous sulfate, furosemide, gabapentin, lactulose as needed for encephalopathy, memantine for dementia, Zofran as needed, pantoprazole and tamsulosin. OBJECTIVE: HEENT: Normocephalic and atraumatic. The patient is very thin and not obtunded. CVS: S1 and S2 normal. Regular rate and rhythm. ABDOMEN: It is tender in the epigastrium. EXTREMITIES: No clubbing, no cyanosis, no edema. The patient again has severe protein energy malnutrition. LABORATORY VALUES: From today none done. Hemoglobin is 7.4. Chemistries; sodium 145, BUN of 23, creatinine 0.97, preserved creatinine function. Iron is 60, TIBC of 258. Percent saturation of 23 and transferrin of 153. Troponin was negative. TSH is 0.093. Lipase is 47. Coags, INR are 1.13. ASSESSMENT: 58-year-old man with history of cirrhosis of liver, history of cerebrovascular accident, history of portal hypertension, and history of diabetes mellitus, comes with gastrointestinal bleed, anemia of chronic disease. The patient is being transfused 2 units of PRBCs. PLAN: Plan would be to possibly do an upper endoscopy to rule out gastrointestinal bleed. Continue with medications for cirrhosis, encephalopathy, hypertension, and hyperlipidemia. Further recommendation per clinical course. The patient has overall very guarded prognosis in lieu of his multiple medical conditions including CVA, cirrhosis of liver, hypertension, and diabetes mellitus. For further information, look into the chart. The patient will continue to be monitor for CBC and CMP on a daily basis. We will continue to monitor the patient along with Dr. Zeb Haq, and check his H and Hs on regular basis. MD LUIS Peters/LEWIS /[id number]
[2018-12-28] MEDS ORDERED: PANTOPRAZOLE 40 MG 10ML VIAL IV SCH (09:00)
[2018-12-28] MEDS ORDERED: PANTOPRAZOLE SOD 40 MG TABEC PO SCH (09:00)
[2018-12-28] MEDS: SERTRALINE PO SCH (09:00)
[2018-12-28 09:56] LABS: BASOPHILS % 0.3 % (0.0-1.0); EOSINOPHILS # (AUTO) 0.2 (0.0-0.4); EOSINOPHILS % 4.5 % (0.0-6.0); HEMOGLOBIN 9.7 g/dL (14.0-18.0); LYMPHOCYTES # (AUTO) 1.1 (1.0-3.2); LYMPHOCYTES % 31.3 % (18.0-39.1); MEAN CORPUSCULAR HEMOGLOBIN 30.1 pg (28-32); MEAN CORPUSCULAR HGB CONC 32.3 g/dL (31-35); MEAN CORPUSCULAR VOLUME 93.2 fL (81-99); MONOCYTES # (AUTO) 0.3 (0.2-0.8); MONOCYTES % 9.4 % (4.4-11.3); NEUTROPHILS # (AUTO) 1.9 (2.1-6.9); NEUTROPHILS % 53.9 % (38.7-80.0); PLATELET COUNT 72 x10e3/uL (140-360); RED BLOOD COUNT 3.22 x10e6/uL (4.3-5.7); RED CELL DISTRIBUTION WIDTH 14.6 % (11.7-14.4)
[2018-12-28] MEDS: TAMSULOSIN HCL 0.4 MG CAP PO SCH (10:16)
[2018-12-28] MEDS: FERROUS SULFATE 325 MG TAB PO SCH (10:16)
[2018-12-28] MEDS: LACTULOSE SYRUP 20 GM/30 ML UDC PO SCH (10:16)
[2018-12-28] MEDS: FUROSEMIDE 40 MG TAB PO SCH ×2 (10:16→18:26)
[2018-12-28] MEDS: SODIUM CHLORIDE 0.9% 1000ML 1,000 ML IV SCH (10:16)
[2018-12-28] MEDS: GABAPENTIN 300 MG CAP PO SCH ×4 (10:16→21:00)
[2018-12-28] MEDS: MEMANTINE 10 MG TAB PO SCH ×2 (10:17→18:26)
[2018-12-28 10:23] LABS: ALANINE AMINOTRANSFERASE 37 IU/L (0-55); ALBUMIN 2.6 g/dL (3.5-5.0); ALBUMIN/GLOBULIN RATIO 0.5 (0.8-2.0); ALKALINE PHOSPHATASE 76 IU/L (40-150); ANION GAP 11.3 mmol/L (8-16); BLOOD UREA NITROGEN 16 mg/dL (7-26); BUN/CREATININE RATIO 21 (6-25); CALCIUM 9.4 mg/dL (8.4-10.2); CARBON DIOXIDE 26 mmol/L (22-29); CHLORIDE 107 mmol/L (98-107); CREATININE, SERUM 0.77 mg/dL (0.72-1.25); EST GLOMERULAR FILTRATION RATE > 60 ML/MIN (60-); GLUCOSE 85 mg/dL (74-118); MAGNESIUM 1.8 MG/DL (1.3-2.1); PHOSPHORUS 3.4 MG/DL (2.3-4.7); POTASSIUM 4.3 mmol/L (3.5-5.1); SODIUM 140 mmol/L (136-145)
--- NOTE | 2018-12-28 14:54 | NUR ---
62 YO MALE DIABETIC PATIENT WITH ANEMIA AND HX OF CVA CONSULT FOR UNSTAGABLE HEEL WOUND LABS: WBC 3.52 HGB 9.7 GLUCOSE PENDING SHAKEEL 12 AND PLACED ON MODERATE PUP ASSESSMENT FINDINGS : PT LEFT HEEL HAS #1 WOUND DARK INTACT BLUISH BLACK AREA [id number] SURROUNDING SKIN DRY AND INTACT #2 WOUND STAGE 2 SACRAL ULCERATION 1CMX.6CMX.1CM PINK WOUND BASE WITH MINIMAL SEROSANGUINEOUS DRAINAGE SURROUNDING SKIN DRY AND INTACT RECOMMENDATIONS: NURSING TO MAINTAIN PRESSURE OFFLOADING AND Q SHIFT WOUND ASSESSMENT NURSING TO CONTINUE TO MAINTAIN PT ON ALTERNATING PRESSURE MATTRESS NURSING TO MAINTAIN BILATERAL HEEL PROTECTORS AND PILLOW SUSPENSION NURSING TO APPLY VENELEX OINTMENT DAILY TO LEFT HEEL STABLE ESCHAR NURSING TO APPLY VENELEX OINTMENT TO SACRAL STAGE 2 AND COVER WITH ALLEVYN FOAM DAILY Addendum: 12/28/18 at 1520 by Kyaw Murphy RN Amended: Links added.
--- NOTE | 2018-12-28 15:25 | NUR ---
Visit made by the Spiritual Care Department Pastoral Visitor, Kusum Holguin. Pt sleeping soundly and no family present. Pastoral Visitor left a card describing availability of pinking sewing machine operator and instructions on how to contact a pinking sewing machine operator. DELIA HAYES Steel Sash Erector Spiritual Care Department O: [phone] Pager: [phone] ([phone] number calling from)
--- NOTE | 2018-12-28 19:20 | NUR ---
Completed BS nursing report with morning nurse. Pt alert to name. Lying in bed HOB 30 degrees. Denies pain at this time. No s/s of pain noted. Call hayes within reach. Bed low and locked. Will continue to monitor.
[2018-12-29] VITALS (7 sets, daily range): BP systolic 114–180; BP diastolic 73–97
--- NOTE | 2018-12-29 04:00 | NUR ---
Called sister, Maricruz x2 with numbers on facesheet, unable to contact. Patient needs consent for EGD. Pt is currently NPO. Will continue to try and notify family.
[2018-12-29 06:28] LABS: EOSINOPHILS # (AUTO) 0.2 (0.0-0.4); EOSINOPHILS % 4.8 % (0.0-6.0); HEMOGLOBIN 9.9 g/dL (14.0-18.0); LYMPHOCYTES # (AUTO) 0.9 (1.0-3.2); LYMPHOCYTES % 27.8 % (18.0-39.1); MEAN CORPUSCULAR HEMOGLOBIN 30.2 pg (28-32); MEAN CORPUSCULAR VOLUME 91.5 fL (81-99); MONOCYTES # (AUTO) 0.3 (0.2-0.8); MONOCYTES % 8.4 % (4.4-11.3); NEUTROPHILS % 58.4 % (38.7-80.0); PLATELET COUNT 74 x10e3/uL (140-360); RED BLOOD COUNT 3.28 x10e6/uL (4.3-5.7); RED CELL DISTRIBUTION WIDTH 14.3 % (11.7-14.4)
[2018-12-29 06:51] LABS: ALANINE AMINOTRANSFERASE 33 IU/L (0-55); ALBUMIN 2.4 g/dL (3.5-5.0); ALBUMIN/GLOBULIN RATIO 0.5 (0.8-2.0); ALKALINE PHOSPHATASE 78 IU/L (40-150); ANION GAP 11.8 mmol/L (8-16); BLOOD UREA NITROGEN 16 mg/dL (7-26); BUN/CREATININE RATIO 19 (6-25); CALCIUM 9.1 mg/dL (8.4-10.2); CARBON DIOXIDE 27 mmol/L (22-29); CHLORIDE 102 mmol/L (98-107); CREATININE, SERUM 0.84 mg/dL (0.72-1.25); EST GLOMERULAR FILTRATION RATE > 60 ML/MIN (60-); GLUCOSE 78 mg/dL (74-118); POTASSIUM 3.8 mmol/L (3.5-5.1); SODIUM 137 mmol/L (136-145)
--- NOTE | 2018-12-29 07:30 | NUR ---
PATIENT IS IN STABLE CONDITION WITH NO S/S OF RESPIRATORY DISTRESS. NO PAIN INDICATED. TELEMETRY APPLIED. IV FLUIDS INFUSING. HEEL PROTECTORS APPLIED. ALLEVYN PAD APPLIED TO SACRUM AREA. BED ALARM ON. CALL LIGHT IS WITHIN REACH, PATIENT INSTRUCTED TO CALL FOR ASSISTANCE NEEDED.
[2018-12-29] MEDS: SERTRALINE PO SCH (09:00)
[2018-12-29] MEDS: MEMANTINE 10 MG TAB PO SCH ×2 (09:00→17:55)
[2018-12-29] MEDS: GABAPENTIN 300 MG CAP PO SCH ×3 (09:00→22:05)
[2018-12-29] MEDS: FUROSEMIDE 40 MG TAB PO SCH ×2 (09:00→17:55)
--- NOTE | 2018-12-29 10:46 | Progress Note ---
DATE: SUBJECTIVE: Patient is here for acute gastrointestinal bleed and anemia of blood loss. The patient currently is status post transfusion. Hemoglobin has gone up to 9.7 and 9.9. The patient is asymptomatic, but still cachectic and also aphasic and is not able to communicate, currently sleeping. No complaints as per nursing staff. OBJECTIVE: VITAL SIGNS: Temperature is 96.8, pulse of 66, respirations of 18, blood pressure is 124/75. HEENT: Normocephalic, atraumatic. Pupils reactive to light and accommodation. CVS: S1, S2 normal. Cachectic, slightly obtunded. ABDOMEN: Better, slightly distended. EXTREMITIES: No clubbing, no cyanosis, no edema. Muscle wasting noted. MEDICATIONS: 1. Gabapentin 3 times a day. 2. Memantine b.i.d. 3. Lasix 60 mg twice a day. 4. Pantoprazole 40 mg daily. 5. Tamsulosin. 6. Lactulose. 7. Ferrous sulfate. 8. The patient is on 125 mL of sodium chloride prior to endoscopy. ASSESSMENT: A 58-year-old gentleman with history of cirrhosis of the liver, history of cerebrovascular accident, history of portal hypertension with GI bleed. The patient has received 2 units of PRBCs. PLAN: Would be to do an endoscopy today with Dr. Zeb Haq, continue with current medication. The patient has addition diagnosis of cirrhosis and encephalopathy. Further recommendation per clinical course, the patient has multiple comorbidities and only of this patient's prognosis is guarded. We will continue to monitor the patient once the endoscopy is done and CBC stable, the patient can be discharged back to the residential for further care. MD LUIS Peters/MODL /[id number]
[2018-12-29] MEDS ORDERED: HYDRALAZINE HCL 20 MG/ML VIAL IV PRN (12:15)
[2018-12-29] MEDS: BALSAM PERU/CASTOR OIL 60 GM OINT...G. TP SCH (12:45)
[2018-12-29] MEDS: SODIUM CHLORIDE 0.9% 1000ML 1,000 ML IV SCH ×2 (12:45→15:10)
--- NOTE | 2018-12-29 13:55 | NUR ---
PATIENT OFF THE UNIT TO ENDOSCOPY FOR EGD- PATIENT IN STABLE CONDITION WITH NO S/S OF RESPIRATORY DISTRESS. NO PAIN VOICED. TELEMETRY APPLIED.
--- NOTE | 2018-12-29 14:20 | NUR ---
Nutrition Intervention Note RD Recommendation(s) for Physician: The patient meets criteria for MODERATE protein-calorie malnutrition. - When medically appropriate, rec advancing to regular diet - Consult LEGAL BILLING ANALYST if risk of aspiration is present - Rec Ensure Enlive TID with Ensure pudding BID to increase protein-calorie intake - Rec appetite stimulant if PO <50% Plan of Care: RD following, monitoring for tolerance and adequacy, ONS rec Nutrition reason for involvement: Nutrition Risk Trigger - MST RD Assessment 12/29 - 58yo M, who was admitted from [facility] for GI bleed. Pt received 2 PRBC today. Planned for EGD today. CXR WNL. Visited pt in the room. 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 Pt denied any nausea or vomiting. Pt denied any chewing or swallowing difficulty. Pt reported UBW of 250lbs (?), possible some gradual weight loss with unknown onset. Pt appeared to be very lethargic and slow to answer questions. Not sure if info provided was reliable. Will continue to monitor and follow. Principal Problems/Diagnoses: Anemia, GI bleed PMH: aphasia, CVA, HTN, DM, liver dz, HLD, GERD, hepatic failure, cirrhosis, falling, anxiety, age related physical disability, dysphagia, cognitive communication deficits GI: abdomen soft, non-tender, LBM - 12/28 Skin: L heel ulcer Labs: (12/29) Reviewed Meds: NaCl @75mL/hr, protonix, lactulose, feosol Ht: 66in Wt: 170lb (?) BMI: 27.4kg/m2 IBW: 142lb +/- 10% Malnutrition Evaluation (12/29/2018) The patient meets criteria for MODERATE protein-calorie malnutrition. Weight loss: >20% in 1 year (Chronic) Fat loss: Moderate - clavicle protrusion Muscle loss: Moderate - temporal depression Supporting Evidence: Fluid accumulation: None Functional Status: weakness and physical disability Nutrition Prescription (Diet Order): NPO Estimated Nutritional Needs: Calories: 1625 - 1950kcal(25-30kcal/kg/d) Weight used: IBW Protein : 65 - 98g (1-1.5g/kg/d) Weight used: IBW Diet Adequacy: Not meeting calorie needs, Not meeting protein needs - NPO Diet Education Needs Assessment: Diet education not indicated. Nutrition Care Level: mod Nutrition Diagnosis: Moderate malnutrition related to inadequate oral intake as evidenced by weight loss and muscle/fat loss upon observation. Goal: Patient will meet 75-100% of estimated needs by follow up Progress: Not Progressing Interventions: General healthful diet, Commercial beverage/ food Monitoring/Evaluation: Total energy intake, Total protein intake, Modified diet, Liquid supplement, Weight change Signed: Katja Haddad MS, RD, LD
[2018-12-29] MEDS ORDERED: FENTANYL CITRATE/PF 100MCG/2 ML INJ ONE (14:57)
[2018-12-29] MEDS ORDERED: PROPOFOL IV EMULSION 10 MG/ML 50 ML VIAL ONE (15:04)
--- NOTE | 2018-12-29 15:45 | NUR ---
Patient back to unit from procedure at this time. He is in stable condition. No s/s of pain noted at this time. Call light within reach. Bed in the lowest position. Bed alarm on.
[2018-12-29] MEDS: FERROUS SULFATE 325 MG TAB PO SCH (17:51)
[2018-12-29] MEDS: TAMSULOSIN HCL 0.4 MG CAP PO SCH (17:52)
[2018-12-29] MEDS: PANTOPRAZOLE 40 MG 10ML VIAL IV SCH (17:53)
[2018-12-29] MEDS: LACTULOSE SYRUP 20 GM/30 ML UDC PO SCH (17:56)
--- NOTE | 2018-12-29 19:24 | NUR ---
PATIENT IS AWAKE AND IN STABLE CONDITION WITH NO S/S OF RESPIRATORY DISTRESS. PATIENT IS CURRENTLY BEING AGGRESSIVE AGAIN AND CUSSING AT STAFF MEMBERS UPON SHIFT CHANGE AND DURING VITALS. NO PAIN VOICED OR INDICATED. PATIENT HAD AN EGD TODAY- PATIENT ATE FROM HIS DINNER TRAY. TELEMETRY APPLIED. IV FLUIDS INFUSING. BED ALARM ON. CALL LIGHT IS WITHIN REACH, PATIENT INSTRUCTED TO CALL FOR ASSISTANCE NEEDED. REPORT GIVEN TO ONCOMING NURSE.
--- NOTE | 2018-12-29 19:27 | Operative Report ---
DATE OF PROCEDURE: 12/29/2018 SURGEON: Zeb Haq MD PROCEDURE: EGD with fulguration of gastric antral vascular ectasia with the APC probe. INDICATIONS FOR PROCEDURE: Anemia, history of GAVE. MEDICATIONS: The patient was done under MAC, please see anesthesiologist's note. PROCEDURE IN DETAIL: With the patient in left lateral decubitus position, a flexible fiberoptic Olympus gastroscope was introduced into the esophagus under direct visualization without any difficulty. There was some grade 1 to 2 esophageal varices without active bleeding or stigmata of recent hemorrhage. The scope was then advanced with ease into the stomach and vascular ectasia was noted in the antrum. There was no active bleeding. The pylorus was intubated and the scope was advanced into the second portion of the duodenum. Mucosa overlying the proximal second portion and grossly the duodenal bulb appeared to be within normal limits. The scope was then withdrawn back into the stomach and retroflexed. Mucosa overlying the fundus and the cardia was grossly unremarkable. The scope was then straightened out and then the antral vascular ectasia were fulgurated with the APC probe with excellent hemostasis. The scope was subsequently withdrawn and the patient tolerated the procedure well. IMPRESSION: 1. Grade 1 to 2 esophageal varices. 2. 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 The patient tolerated the procedure well. PLAN: Initiate Protonix 40 mg IV b.i.d. Follow H and H. Start full liquid diet. Zeb Haq MD [facility] [place]/JENAEL /[id number] cc: Danielito Hernnadez MD
--- NOTE | 2018-12-29 19:46 | NUR ---
PT IS AGGRESSIVE IN HIS ACTION AND VERBALLY WHEN DOING CARE ON HIM. RESPIRATION IS EVEN AND UNEVEN LABORED, NO DISTRESS NOTED. BED IN IN THE LOWEST POSITION, LOCKED, BED ALARM ON, AND CALL LIGHT WITHIN REACH. WILL CONTINUE TO MONITOR.
--- NOTE | 2018-12-29 23:55 | NUR ---
SPOKE TO DR ALFARO IN REGARD TO D/C TELEMETRY AND FLUID ORDER. PER DR ALFARO D/Monica THE FLUID AND TELEMETRY. WILL CONTINUE TO MONITOR.
[2018-12-30] VITALS (7 sets, daily range): BP systolic 122–160; BP diastolic 64–92
--- NOTE | 2018-12-30 00:30 | NUR ---
PER DR Marianela EPSTEIN CHANGE PT DIET TO GI SOFT. WILL CONTINUE TO MONITOR.
[2018-12-30] MEDS: PANTOPRAZOLE 40 MG 10ML VIAL IV SCH ×2 (03:12→14:31)
--- NOTE | 2018-12-30 04:23 | NUR ---
PT IS REFUSING HIS MORNING VITAL. PT IS USING EXPLETIVE AND GESTURING MOTION WITH HAS HANDS LIKE HE WILL HIT STAFF. WILL CONTINUE TO MONITOR.
--- NOTE | 2018-12-30 07:05 | NUR ---
PATIENT IS IN STABLE CONDITION WITH NO S/S OF RESPIRATORY DISTRESS. NO PAIN INDICATED. ALLEVYN PAD APPLIED TO SACRUM AREA. BED ALARM ON. CALL LIGHT IS WITHIN REACH, PATIENT INSTRUCTED TO CALL FOR ASSISTANCE NEEDED.
[2018-12-30 07:39] LABS: BASOPHILS % 0.3 % (0.0-1.0); EOSINOPHILS # (AUTO) 0.2 (0.0-0.4); EOSINOPHILS % 4.5 % (0.0-6.0); HEMATOCRIT 29.7 % (38.2-49.6); HEMOGLOBIN 9.7 g/dL (14.0-18.0); LYMPHOCYTES # (AUTO) 0.8 (1.0-3.2); LYMPHOCYTES % 21.3 % (18.0-39.1); MEAN CORPUSCULAR HEMOGLOBIN 29.8 pg (28-32); MEAN CORPUSCULAR HGB CONC 32.7 g/dL (31-35); MEAN CORPUSCULAR VOLUME 91.4 fL (81-99); MONOCYTES # (AUTO) 0.3 (0.2-0.8); NEUTROPHILS # (AUTO) 2.3 (2.1-6.9); NEUTROPHILS % 64.3 % (38.7-80.0); PLATELET COUNT 74 x10e3/uL (140-360); RED BLOOD COUNT 3.25 x10e6/uL (4.3-5.7); RED CELL DISTRIBUTION WIDTH 14.1 % (11.7-14.4)
[2018-12-30] MEDS: MEMANTINE 10 MG TAB PO SCH ×2 (08:14→16:02)
[2018-12-30] MEDS: TAMSULOSIN HCL 0.4 MG CAP PO SCH (08:14)
[2018-12-30] MEDS: FERROUS SULFATE 325 MG TAB PO SCH (08:14)
[2018-12-30] MEDS: FUROSEMIDE 40 MG TAB PO SCH ×2 (08:14→16:02)
[2018-12-30] MEDS: LACTULOSE SYRUP 20 GM/30 ML UDC PO SCH (08:14)
[2018-12-30] MEDS: GABAPENTIN 300 MG CAP PO SCH ×3 (08:14→21:25)
[2018-12-30] MEDS: SERTRALINE PO SCH (08:14)
[2018-12-30] MEDS: BALSAM PERU/CASTOR OIL 60 GM OINT...G. TP SCH (08:16)
--- NOTE | 2018-12-30 09:06 | Progress Note ---
DATE: SUBJECTIVE: The patient is here for symptomatic anemia, blood loss anemia. The patient had an endoscopy done yesterday, did see most multiple gastric vascular ectasias by Dr. Haq, also, he had a grade 1 to grade 2 esophageal varices. The patient had blood transfusions done, 2 units of PRBCs were transfused before the endoscopy. OBJECTIVE: VITAL SIGNS: Temperature 96.1, pulse 69, blood pressure is 160/92, and pulse oximetry of 99%. GENERAL: The patient is more alert today and more oriented. HEENT: Normocephalic and atraumatic. The patient is aphasic. CVS: S1 and S2. Normal rate and rhythm. ABDOMEN: Nontender and nondistended. EXTREMITIES: No clubbing, no cyanosis, no edema. The patient has aphasia and also left-sided weakness and contractures secondary to the old CVA. LABORATORY VALUES: White count of 3.5, hemoglobin of 9.9, and hematocrit of 30.0 yesterday, we will go ahead and check them today. Chemistries; sodium 137, potassium 3.8, BUN and creatinine 16 and 0.85. The patient's other labs are essentially normal. Endoscopy studies are as mentioned above. ASSESSMENT: 58-year-old gentleman with history of cirrhosis of the liver, history of portal hypertension, history of cerebrovascular accident, history of gastrointestinal bleed, status post 2 units of PRBCs. PLAN: Plan would be to continue to monitor the patient. Check his H and H today. If stable, the patient can be discharged on Protonix p.o. We will discuss the case with Dr. Zeb Haq. Multiple comorbidities exist. The patient will need to go back to the correction setting for further continuum of care. MD LUIS Peters/MODL /[id number]
--- NOTE | 2018-12-30 16:02 | NUR ---
PATIENT HAD A BM- NW ALLEVYN PAD ADDED. PATIENT TURNED AND BED ALARM APPLIED.
--- NOTE | 2018-12-30 19:34 | NUR ---
PATIENT IS IN STABLE CONDITION WITH NO S/S OF RESPIRATORY DISTRESS. NO PAIN VOICED. BED ALARM APPLIED. CALL LIGHT IS WITHIN REACH, PATIENT INSTRUCTED TO CALL FOR ASSISTANCE NEEDED. BEDSIDE REPORT GIVEN TO ONCOMING NURSE.
--- NOTE | 2018-12-30 19:43 | NUR ---
PT IS RESTING IN BED. RESPIRATION IS EVEN AND UNEVEN LABORED, NO DISTRESS NOTED. BED IN IN THE LOWEST POSITION, LOCKED, BED ALARM ON, AND CALL LIGHT WITHIN REACH. WILL CONTINUE TO MONITOR.
[2018-12-31] VITALS: BP 169/72
[2018-12-31] MEDS: PANTOPRAZOLE 40 MG 10ML VIAL IV SCH ×2 (02:58→17:01)
[2018-12-31 04:00] VITALS: BP 166/95
--- NOTE | 2018-12-31 07:42 | Progress Note ---
DATE: Progress Note And Discharge Note SUBJECTIVE: The patient is a 58-year-old male, who comes in with acute GI bleed. The patient underwent endoscopy, was found to have grade 2 variceal bleeds and also with some AVMs in the stomach. The patient is currently asymptomatic, baseline with CVA with residual speech changes. The patient is sleepy, arousable, and aphasic and can only mutter few words, otherwise asymptomatic. OBJECTIVE: VITAL SIGNS: Temperature is 96.0, pulse of 94, blood pressure is 166/95, and pulse oximetry 100%. HEENT: Normocephalic and atraumatic. The patient has baseline aphasia. CVS: S1 and S2. Regular rate and rhythm. ABDOMEN: Nontender and nondistended. EXTREMITIES: No clubbing, no cyanosis, and positive for trace edema. The patient has residual weakness as noted in the chart. LABORATORY VALUES: Today hemoglobin is 9.7, hematocrit of 29.7, and platelet count 74. Chemistry shows sodium of 137, BUN of 16, creatinine 0.84, AST 35, otherwise normal. Coags are also normal. Microbiology, urine culture showed no growth in 36 to 48 hours. ASSESSMENT: A 58-year-old gentleman with: 1. Acute GI bleed, status post endoscopy and status post 2 units of PRBC. The patient is stable enough to go home. The patient will need an elective colonoscopy as an outpatient basis. Hemoglobin to be monitored in the shelter, while if he is to stay here, the patient has to be restarted back in his ferrous sulfate for iron deficiency anemia. 2. Cerebrovascular accident. 3. Hypertension. 4. Hyperlipidemia. 5. Cirrhosis of the liver with portal hypertension and variceal bleed. We will continue to monitor the patient. Further recommendation and clinical course, the patient will need to be seen by the shelter and monitored CBC in next 2 to 3 days to see for stability. This has been relayed onto the nursing staff. MD LUIS Peters/JENAEL /[id number]
[2018-12-31 08:00] VITALS: BP 117/67
[2018-12-31] MEDS: GABAPENTIN 300 MG CAP PO SCH ×2 (08:51→17:01)
[2018-12-31] MEDS: MEMANTINE 10 MG TAB PO SCH ×2 (08:51→17:01)
[2018-12-31] MEDS: LACTULOSE SYRUP 20 GM/30 ML UDC PO SCH (08:51)
[2018-12-31] MEDS: FERROUS SULFATE 325 MG TAB PO SCH (08:51)
[2018-12-31] MEDS: TAMSULOSIN HCL 0.4 MG CAP PO SCH (08:51)
[2018-12-31] MEDS: FUROSEMIDE 40 MG TAB PO SCH ×2 (08:51→17:01)
[2018-12-31] MEDS: SERTRALINE PO SCH (08:58)
[2018-12-31] MEDS: BALSAM PERU/CASTOR OIL 60 GM OINT...G. TP SCH (08:58)
[2018-12-31 12:00] VITALS: BP 160/85
--- NOTE | 2018-12-31 12:17 | NUR ---
NURSING FACILITY DISCHARGE INFORMATION PATIENT HAS BEEN ACCEPTED TO: NAME: [facility] ADDRESS: [address], [place] [address] ACCEPTING TOUCH UP WORKER: ACCEPTING MD: BUCKY BEST ROOM: 129A NURSE CALL REPORT TO: IMM SIGNED AND OBTAINED (if applicable): NA THE FOLLOWING DOCUMENTS MUST ACCOMPANY PATIENT FOR TRANSFER: COPIED CHART: CLINICALS FACESHEET NO PASRR NEEDED CAME FROM FACILITY
[2018-12-31 16:00] VITALS: BP 129/74
--- NOTE | 2018-12-31 18:30 | NUR ---
Pt discharged to [facility] home at this time. 0 s/s of acute distress noted at this time. Denies any pain at this time.
== END 2018-12-31 18:59 | DRG 378 ==
LOC: ER 13:17 → ERHOLD 13:53 → MED/SURG3 12-28 00:48
PROVIDERS: ADMIT Family Medicine; ATTEND Family Medicine
PROC: 30233N1 Transfusion of Nonautologous Red Blood Cells into Peripheral Vein, Percutaneous Approach (ICD-10-PCS; principal; 2018-12-27)
PROC: 0D578ZZ Destruction of Stomach, Pylorus, Via Natural or Artificial Opening Endoscopic (ICD-10-PCS; 2018-12-29)
DX: K31.811 Angiodysplasia of stomach and duodenum with bleeding (principal); K76.6 Portal hypertension; I85.10 Secondary esophageal varices without bleeding; I69.320 Aphasia following cerebral infarction; E11.9 Type 2 diabetes mellitus without complications; E78.5 Hyperlipidemia, unspecified; K21.9 Gastro-esophageal reflux disease without esophagitis; F41.9 Anxiety disorder, unspecified; R41.89 Other symptoms and signs involving cognitive functions and awareness; F03.90 Unspecified dementia, unspecified severity, without behavioral disturbance, psychotic disturbance, mood disturbance, and anxiety; D63.8 Anemia in other chronic diseases classified elsewhere; K70.30 Alcoholic cirrhosis of liver without ascites; B19.20 Unspecified viral hepatitis C without hepatic coma; F10.21 Alcohol dependence, in remission; I10 Essential (primary) hypertension; D50.9 Iron deficiency anemia, unspecified; Z79.84 Long term (current) use of oral hypoglycemic drugs
CPT/HCPCS: 36415; 43255; 71045; 80053; 81001; 82140; 82550; 82553; 82948; 83540; 83690; 83735; 83880; 84100; 84443; 84466; 84484; 85025; 85610; 85730; 86850; 86900; 86920; 87086; 93005; 99284; J0360; J1200; J1940; J2405; J3010; J7030; J7050; P9016